=== PATIENT | female | born 1965 | race Caucasian/White ===

== ENCOUNTER 2019-05-21 11:14 | Outpatient (CLI) | payer OTHER, SELFPAY ==
--- NOTE | 2019-05-21 | XR_ITS ---
WS: [id number] Abdomen , Flat and upright 05/21/2019 Clinical Data: CONSTIPATION Comparison: None. Findings: No free air is seen beneath the diaphragms. No abnormal intra-abdominal masses or calcifica tions are seen. There is air in the small bowel, stomach and colon. The patient's had intestinal surg john and there are small surgical andrea in the left side of the true pelvis. There is a moderate chantel unt of fecal material throughout the colon. No obstruction is seen. XR/XR abdomen min 2V [id number] Impression: Moderate amount of fecal material in the colon.
== END 2019-05-21 11:15 | disposition home or self-care (01) ==
LOC: RADOUTREAD 05-22 08:48
PROVIDERS: Visit Provider Physician Assistant
DX: K59.00 Constipation, unspecified (principal); Z90.710 Acquired absence of both cervix and uterus

== ENCOUNTER 2019-06-27 10:07 | Outpatient (CLI) | payer OTHER, SELFPAY ==
--- NOTE | 2019-06-27 10:10 | MM_ITS ---
WS: [id number] BILATERAL DIGITAL DIAGNOSTIC MAMMOGRAM MAMMOGRAPHY WITH CAD CLINICAL INFORMATION: HX OF BREAST CA HISTORY: History of right breast cancer 2018. Right breast soreness. COMPARISON: January 04, 2018 TECHNIQUE: Bilateral CC, MLO, and ML views. FINDINGS: The breasts are composed of scattered fibroglandular densities. Postoperative changes upper inner rig ht breast with surgical clips and lumpectomy. Associated parenchymal fibrosis. No suspicious focal mass, asymmetry, calcifications, or architectural distortion. No evidence of kunal gnancy. MM/[place] [id number] IMPRESSION: BI-RADS: 2-Benign FOLLOW UP: 1 Year Follow-up Recommend return to annual diagnostic mammography.
== END 2019-06-27 10:08 | disposition home or self-care (01) ==
LOC: RADSHAW 10:07
PROVIDERS: PCP Physician Assistant; Visit Provider Physician Assistant
DX: Z85.3 Personal history of malignant neoplasm of breast (principal)
CPT/HCPCS: 77066

== ENCOUNTER 2022-09-13 23:08 | Emergency (ER) | payer OTHER, SELFPAY ==
[2022-09-13 23:14] VITALS: BP 138/72; PULSE 96; RESP 14; TEMP 36.6; O2SAT 96
[2022-09-13 23:16] VITALS: PULSE 74; RESP 16; O2SAT 98
--- NOTE | 2022-09-13 23:18 | W.ED.ALLEREA ---
HPI - Allergic Reaction General: Chief complaint: Allergic Reaction Stated complaint: allergic rxn Time Seen by Provider: 09/13/22 23:17 History of Present Illness: HPI narrative: 57-year-old female comes in today for complaints of red rash, itching, and tongue swelling that started approximately 30 minutes ago. Patient appears nontoxic. Patient is breathing without difficulty. Patient speaks without difficulty. Patient reports no new medications, new foods, or exposure to new chemicals. 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 Patient denies any routine medication but [id number] ibuprofen. Patient reports no difficulty breathing. Patient converses in full sentences. Known history of allergy to: Red food coloring Associated symptoms: Reports nausea; Deny vomiting Review of Systems Const: Denies: fever(s) Eyes: Denies: change in vision ENMT: Denies: throat pain Card: Denies: chest pain Resp: Denies: dyspnea GI: Reports: nausea; Denies: vomiting, diarrhea or constipation : Denies: flank pain Musc: Denies: neck pain Skin/Breast: Reports: rash Neuro: Denies: headache(s) Psych: Denies: depression Physical Exam Const: COMMON NORMALS: alert HENMT: COMMON NORMALS: normocephalic HEAD & SCALP: normocephalic MOUTH: Normal oral and palatal mucosa present and tongue normal THROAT: posterior oropharynx normal Neck/C-Spine: COMMON NORMALS: full ROM Resp: COMMON NORMALS: normal respiratory effort and clear to auscultation bilaterally AUSCULTATION: clear to auscultation bilaterally Cardio: COMMON NORMALS: regular rate and regular rhythm RATE: regular rate RHYTHM: regular rhythm GI: INSPECTION: Yes normal to inspection AUSCULTATION: Yes normoactive bowel sounds PALPATION: No Tenderness to palpation present (GI) Back/Pelvis: COMMON NORMALS: thoracic and lumbar spine normal to inspection Extremity: COMMON NORMALS: normal to inspection Neuro: SENSORIUM/ORIENTATION: Yes alert Skin: RASHES: rashes noted (Erythematous rash generalized body) Course Vital Signs: Vital signs: Vital Signs Temperature 97.8 F 09/13/22 23:14 Pulse Rate 74 09/13/22 23:16 Respiratory Rate 16 09/13/22 23:16 Blood Pressure 138/72 09/13/22 23:14 Pulse Oximetry 98 09/13/22 23:16 Oxygen Delivery Me thod Room Air 09/13/22 23:16 MDM - Allergic Reaction Medical Decision Making 57-year-old female comes in today for complaints of itching rash all over her body, and tongue discomfort. On exam patient has a generalized erythematous rash. Respirations are even lungs are clear to auscultation. Tongue appears normal. Posterior pharynx is pink and moist. No asymmetry is noted. No edema is noted in the lower extremities. Abdomen soft nontender. Differential diagnosis includes urticaria, allergic reaction, respiratory failure. Patient was treated with 25 mg of diphenhydramine IV push, 40 mg of Pepcid IV push, and 8 mg of dexamethasone. Patient's rash resolved and reported decreased swelling and tongue. Patient appears nontoxic. Reviewed exam with patient with recommendations for further treatment and follow-up. Patient reported understanding and agreed to plan. Discharge Plan Discharge Patient Disposition: Home Clinical Impression: Allergic reaction Condition: Stable Prescriptions: New loratadine 10 mg tablet 10 - 20 mg PO BID PRN (Reason: allergic symptoms) Qty: 60 0RF famotidine 40 mg tablet 40 mg PO BID Qty: 20 0RF Discharge Orders: Discharge ED (Routine); Ordered 09/14/22 Ordered By: Jason Jurado Referrals: Kajal Ferro PA [Primary Care Provider] - Discharge Diet: Usual diet Discharge Activity: Increase activity as tolerated Patient Instructions: General Allergic Reaction (ED) Activity Restrictions/Additional Instructions: Drink plenty of water and fluids. Use loratadine and or cetirizine 1 to 2 tablets 2 times a day to control allergy symptoms. Use famotidine 40 mg 1 tablet twice a day to further control histamine. Avoid extreme temperatures. Avoid spicy foods. These may increase histamine levels and cause rash and itching. Follow-up with primary care for recheck. Return to emergency department for worsening symptoms such as severe chest pain, increased shortness of breath, or new concerns. Coding Level of Care Code ED [employer] Straight[employer] for Salena Mcfadden
[2022-09-13] MEDS: dexamethasone 4 mg/mL INJ 8 MG IVP (23:30)
[2022-09-13] MEDS: diphenhydrAMINE 50 mg/mL SDV 1mL 25 MG IVP (23:32)
[2022-09-13] MEDS: famotidine 20 mg/2 mL INJ 40 MG IVP (23:35)
[2022-09-14 00:17] VITALS: BP 119/65; PULSE 79; RESP 16; O2SAT 96
[2022-09-14] MEDS: loratadine 10 mg Tablet 20 MG PO (00:17)
== END 2022-09-14 00:23 | disposition home or self-care (01) ==
PROVIDERS: Emergency Provider Nurse Practitioner Family; PCP Physician Assistant
DX: T78.40XA Allergy, unspecified, initial encounter (principal)
CPT/HCPCS: 96374; 96375; 99284; J1100; J1200; J3490

== ENCOUNTER 2023-07-18 13:06 | Emergency (ER) | payer OTHER, SELFPAY ==
[2023-07-18 13:16] VITALS: BP 154/80; PULSE 66; RESP 16; TEMP 36.5; O2SAT 98; BMI 30.2
--- NOTE | 2023-07-18 13:23 | ED_ITS ---
HPI - Wound/Laceration 2 General: Chief Complaint: Wound/Laceration Stated Complaint: lip lac Time Seen by Provider: 07/18/23 13:23 Source: patient Mode of arrival: ambulatory Limitations: no limitations History of Present Illness: Patient is a nice 58-year-old female presents to ED today for evaluation of a lip/facial laceration that she sustained after tripping and falling and landing directly onto her face. She denies any dental injuries. Denies any other injuries apart from a laceration involving her upper lip area. Her tetanus is up-to-date. She denies LOC. She does not complain of a headache or any visual changes. No neck pain. Onset (ago): hour(s) Location: face Place: home Patient tetanus UTD: Yes Context: accidental Associated symptoms: Reports no associated symptoms Review of Systems 2 Eyes: Denies: change in vision, blurry vision, floaters or seeing flashes ENMT: Reports: mouth pain and swelling of lips/tongue (lip laceration); Denies: throat pain, odynophagia or dental pain Musc: Denies: neck pain, back pain, extremity pain or joint pain Neuro: Denies: headache(s) Physical Exam 2 Const: COMMON NORMALS: no acute distress, average body habitus, patient oriented x3, no limitations, healthy appearing, alert and well nourished HENMT: COMMON NORMALS: normocephalic, atraumatic and Normal external nose present HEAD & SCALP: normal to inspection, normocephalic and atraumatic F FARHAT & SINUS: normal facial exam (apart from lip findings) NOSE: Normal external nose present NOSE IMAGE: 1. 1cm laceration-through and through; slight julito border involvement MOUTH: Normal oral and palatal mucosa present (small gingival contusion; no dental injury noted) and lip normal (see above) TEETH & GINGIVA: Yes fair dentition and Yes other (small gingival contusion L upper) THROAT: posterior oropharynx normal and tonsils normal Eye: GENERAL EYE: appearance normal, both eyes and all related structures Neck/C-Spine: COMMON NORMALS: full ROM GENERAL: Yes normal visual inspection CERVICAL SPINE: No Cervical spine tenderness Neuro: COMMON NORMALS: patient oriented x3 SENSORIUM/ORIENTATION: Yes alert Procedures Laceration Laceration 1: Site: lip Size (cm): 1.0 Description: irregular Depth: [id number] Local Anesthetic: lidocaine 1% Amount of anesthesia used (mL): 1.0 Pre-repair: wound explored and irrigated extensively Skin layer closed with: nylon Size (cm): 5-0 Number of sutures: 3 Technique: simple, interrupted Subcutaneous layer closed with: vicryl Size: 5-0 Number of sutures: 1 Technique: simple, interrupted Course 2 Vital Signs: Vital signs: Vital Signs Temperature 97.7 F 07/18/23 13:16 Pulse Rate 66 07/18/23 13:16 Respiratory Rate 16 07/18/23 13:16 Blood Pressure 154/80 07/18/23 13:16 Pulse Oximetry 98 07/18/23 13:16 Oxygen Delivery Me thod Room Air 07/18/23 13:16 MDM - Wound/Laceration Medical Decision Making Wound was copiously irrigated and repaired as documented. Good cosmetic outcome achieved. She will be placed on prophylactic antibiotics. Recommend rinsing her mouth with water after eating. Wound care/infection precautions discussed with patient. Her tetanus is up-to-date. Differential Diagnosis Likely laceration No radiology studies performed this visit Discharge Plan Discharge Patient Disposition: Home Clinical Impression: Laceration of lip Qualifiers: Encounter type: initial encounter Qualified Code(s): S01.511A - Laceration without foreign body of lip, initial encounter Condition: Stable Prescriptions: New amoxicillin 500 mg capsule 500 mg PO BID 5 Days Qty: 10 0RF No Action loratadine 10 mg tablet 10 - 20 mg PO BID PRN (Reason: allergic symptoms) Qty: 60 0RF famotidine 40 mg tablet 40 mg PO BID Qty: 20 0RF Discharge Orders: Discharge ED (Routine); Ordered 07/18/23 Ordered By: Nereyda Newby Referrals: Kajal Ferro PA [Primary Care Provider] - Patient Instructions: Care For Your Stitches (DC), Facial Laceration (ED) Activity Restrictions/Additional Instructions: Keep wound/laceration clean with warm soap and water twice daily. Monitor for signs of infection such as redness, swelling, increased pain, or drainage. Please seek medical re-evaluation if these occur. If you received sutures today these will need to be removed (unless you were told by the provider that they are absorbable). The provider should have discussed with you the length of time until removal-5 DAYS. Fill antibiotics and start them immediately. Rinse your mouth out with water after eating. Coding Level of Care Code ED Olive Pitter for Salena Mcfadden
== END 2023-07-18 14:29 | disposition home or self-care (01) ==
PROVIDERS: Emergency Provider Physician Assistant; PCP Physician Assistant
DX: S01.511A Laceration without foreign body of lip, initial encounter (principal); W01.0XXA Fall on same level from slipping, tripping and stumbling without subsequent striking against object, initial encounter
CPT/HCPCS: 12051; 99283

== ENCOUNTER 2023-08-24 09:59 | Outpatient (CLI) | payer OTHER, SELFPAY ==
--- NOTE | 2023-08-24 10:21 | MM_ITS ---
WS: [id number] DIAGNOSTIC BILATERAL DIGITAL BREAST TOMOSYNTHESIS MAMMOGRAPHY WITH CAD HISTORY: ANNUAL - HX BR CA COMPARISON: None available. TECHNIQUE: Bilateral craniocaudad, mediolateral oblique, and mediolateral views are submitted with to moskarla and SM. Computer aided detection utilized. Breast composition: There are scattered areas of fibroglandular density. Postsurgical lumpectomy site 3:00 axis RIGHT breast. No recurrent mass. No suspicious calcifications. Lumpectomy site is stable. Negative LEFT breast. IMPRESSION: MM/[place] [id number] BI-RADS: 2-Benign FOLLOW UP: 1 Year Follow-up
== END 2023-08-24 10:00 | disposition home or self-care (01) ==
LOC: RAD 10:00
PROVIDERS: PCP Physician Assistant; Visit Provider Physician Assistant
DX: Z08 Encounter for follow-up examination after completed treatment for malignant neoplasm (principal); R92.323 Mammographic fibroglandular density, bilateral breasts; Z85.3 Personal history of malignant neoplasm of breast; Z98.890 Other specified postprocedural states
CPT/HCPCS: 77062; G0279